=== PATIENT | male | born 1970 | race Caucasian/White ===

== ENCOUNTER 2019-03-08 14:07 | Outpatient (CLI) | payer BC ==
--- NOTE | 2019-03-08 14:36 | RAD ---
PA AND LATERAL VIEWS CHEST: Date: 03/08/19 HISTORY: Cough, fever. FINDINGS: Comparison made with exam of 09/26/15. The heart size is normal. The aorta is tortuous. The lungs are well expanded without focal areas of c onsolidation, pneumothoraces, or pleural effusions. No acute osseous abnormalities are seen. IMPRESSION: No acute process. POS: [facility]
== END 2019-03-08 14:08 | disposition home or self-care (01) ==
LOC: BICRAD 14:07
PROVIDERS: ATTEND Physician Assistant
DX: R05 Cough (principal)
CPT/HCPCS: 71046